=== PATIENT | female | born 1975 | race Two or more races ===

== ENCOUNTER 2020-07-26 17:35 | Inpatient (IN) | payer OTHER ==
[~2020-07-26] VITALS: Ht 160 cm; Wt 96.5 kg
--- NOTE | 2020-07-26 18:00 | NUR ---
AMBULATORY TO ED ROOM 27 W/ SLOW, STEADY GAIT. CONGESTED COUGH NOTED.
--- NOTE | 2020-07-26 18:18 | NUR ---
COVID TEST ON TUESDAY: POSITIVE. PAIN W/ COUGHING, FEVER, NAUSEA, PRODUCTIVE COUGH, DIARRHEA. DENIES ABD PAIN. PT'S DAUGHTER IN ROOM ASSISTING W/ HX. PT HAS TAKEN MULTIPLE OTC MEDS FOR SX RECENTLY. TODAY: ASPIRIN (LAST DOSE 1500)
[2020-07-26] MEDS ORDERED: METF500T17 PO (18:26)
[2020-07-26] MEDS ORDERED: LISI-167 PO (18:26)
[2020-07-26] MEDS ORDERED: LOVA20TA2 PO (18:26)
--- NOTE | 2020-07-26 18:26 | NUR ---
MED REC COMPLETED. PT REPORTS SHE HASN'T TAKEN HER MEDS THIS WEEK DUE TO FEELING ILL.
--- NOTE | 2020-07-26 18:44 | NUR ---
PREDNISONE GIVEN. LAB AT BS.
[2020-07-26] MEDS ORDERED: CEFTRIAXONE PMX 1GM/50ML 50 ML IVPB ONE (19:00)
[2020-07-26] MEDS ORDERED: DOXYCYCLINE 100MG TABLET PO ONE (19:00)
[2020-07-26] MEDS ORDERED: DEXAMETHASONE 4 MG/ML, 1ML IVPush ONE (19:00)
[2020-07-26 19:01] LABS: BASOPHILS % (AUTO) 0 % (0-1); EOSINOPHILS % (AUTO) 0 % (1-7); LYMPHOCYTES % (AUTO) 13 % (22-44); MEAN CORPUSCULAR HEMOGLOBIN 27.2 pg (27.0-34.8); MEAN CORPUSCULAR HGB CONC 33.6 g/dL (32.4-35.8); MEAN PLATELET VOLUME 7.5 fL (7.4-10.4); MONOCYTES % (AUTO) 3 % (2-9); NEUTROPHILS % (AUTO) 84 % (42-75); PLATELET COUNT 204 x10^3/uL (130-400); RED BLOOD COUNT 4.77 x10^6/uL (3.82-5.3)
[2020-07-26] MEDS ORDERED: DEXAMETHASONE 4 MG/ML, 1ML ONE (19:01)
[2020-07-26] MEDS ORDERED: CEFTRIAXONE PMX 1GM/50ML 50 ML ONE (19:02)
[2020-07-26] MEDS ORDERED: DOXYCYCLINE 100MG TABLET ONE (19:04)
[2020-07-26 19:09] LABS: ALBUMIN 2.6 g/dL (3.4-5.0); ANION GAP 7 mmol/L (5-15); CALCIUM 8.4 mg/dL (8.5-10.1); CHLORIDE 99 mmol/L (98-107); CREATININE 0.61 mg/dL (0.55-1.02)
[2020-07-26 19:16] LABS: ALANINE AMINOTRANSFERASE 25 U/L (12-78); ALKALINE PHOSPHATASE 96 U/L (45-117); BILIRUBIN,TOTAL 0.4 mg/dL (0.2-1.0); MD NO; TOTAL PROTEIN 7.2 g/dL (6.4-8.2)
[2020-07-26 19:21] LABS: BASOPHILS % (AUTO) 0 % (0-1); EOSINOPHILS % (AUTO) 0 % (1-7); LYMPHOCYTES % (AUTO) 13 % (22-44); MEAN CORPUSCULAR HEMOGLOBIN 27.1 pg (27.0-34.8); MEAN CORPUSCULAR HGB CONC 33.4 g/dL (32.4-35.8); MEAN PLATELET VOLUME 7.7 fL (7.4-10.4); MONOCYTES % (AUTO) 3 % (2-9); NEUTROPHILS % (AUTO) 84 % (42-75); PLATELET COUNT 215 x10^3/uL (130-400); RED BLOOD COUNT 4.83 x10^6/uL (3.82-5.3); RED CELL DISTRIBUTION WIDTH 13.9 % (9.6-15.2)
[2020-07-26 19:24] LABS: MD NO
--- NOTE | 2020-07-26 19:30 | NUR ---
PIV INITIATED; 20G LAC. 2ND BLD CX SET DRAWN FROM SITE.
--- NOTE | 2020-07-26 19:34 | NUR ---
VIBRAMYCIN, DECADRON GIVEN. THALIA WHARTON. IV SITE PATENT. APPLE JUICE & JACKY CRACKERS PROVIDED.
[2020-07-26 19:42] LABS: D-DIMER (DIC) 0.85 ug/mlFEU (0.00-0.52); PROTIME 10.6 Seconds (9.6-11.5)
--- NOTE | 2020-07-26 20:56 | NUR ---
AMBULATORY TO & FROM BR W/ STEADY GAIT. HOSPITAL BED TO ROOM. JUICE, WATER & JACKY CRACKERS PROVIDED.
--- NOTE | 2020-07-26 21:56 | NUR ---
PT REPORT TO VAZQUEZ HOLLAND. PT CARE TRANSFERRED.
[2020-07-26] MEDS ORDERED: DOCUSATE 100 MG CAPSULE PO PRN (22:00)
[2020-07-26] MEDS ORDERED: OXYcodone IR 5MG TABLET PO PRN (22:00)
[2020-07-26] MEDS ORDERED: PROMETHAZINE 25 MG/ML, 1ML IM PRN (22:00)
[2020-07-26] MEDS ORDERED: hydrALAzine 20 MG/ML, 1ML IVPush PRN (22:00)
[2020-07-26] MEDS ORDERED: POLYETHYLENE GLYCOL 17 GM PACKET PO PRN (22:00)
[2020-07-26] MEDS ORDERED: ACETAMINOPHEN 325 MG TABLET PO PRN (22:00)
[2020-07-26] MEDS ORDERED: ONDANSETRON 2MG/ML, 2ML IVPush PRN (22:00)
[2020-07-26] MEDS ORDERED: morphine SULFATE 10 MG/ML, 1ML IVPush PRN (22:00)
[2020-07-26] MEDS ORDERED: ENOXAPARIN 40 MG/0.4 ML SQ SCH (22:00)
[2020-07-26] MEDS ORDERED: BISACODYL 10 MG SUPP PR PRN (22:00)
[2020-07-26] MEDS ORDERED: ONDANSETRON ODT 4 MG PO PRN (22:00)
--- NOTE | 2020-07-26 22:00 | NUR ---
REPORT FROM JAY JAY SHUKLA. PT RESTING WITH NO NEEDS AT THIS TIME. CALL LIGHT IN REACH. VSS
[2020-07-26] MEDS ORDERED: ASCORBIC ACID 500 MG TABLET ONE (22:27)
[2020-07-26] MEDS ORDERED: ENOXAPARIN 40 MG/0.4 ML ONE (22:27)
[2020-07-26] MEDS ORDERED: ZINC SULFATE 220 MG CAPSULE ONE (22:27)
[2020-07-26] MEDS ORDERED: ALBUTEROL HFA 90 MCG/SPRAY INH PRN ×2 (22:30→23:30)
[2020-07-26] MEDS ORDERED: REMDESIVIR 200 MG in SODIUM CHLORIDE 0.9% 250 ML IVPB ONE (22:30)
[2020-07-26] MEDS: ASCORBIC ACID 500 MG TABLET PO SCH (22:33)
[2020-07-26] MEDS: ZINC SULFATE 220 MG CAPSULE PO SCH (22:34)
--- NOTE | 2020-07-26 22:44 | NUR ---
PT MEDICATED AND PLACED ON PRINTING GRAY CLOTH TENDER. VSS. PT HAS NO OTHER NEEDS. CALL LIGHT IN REACH.
--- NOTE | 2020-07-26 23:05 | NUR ---
SPOKE TO PT ABOUT REMDESIVIR. GAVE PT EDUCATION HANDOUT AND ANSWERED QUESTIONS. PT VWERBALIZED UNDERSTANDING AND MEDICATION STARTED. WILL CONTINUE TO MONITOR PT. CALL LIGHT IN REACH
--- NOTE | 2020-07-27 00:49 | NUR ---
Report received from VAZQUEZ Valdez. This RN to assume care. Patient sleeping at this time.
--- NOTE | 2020-07-27 01:30 | NUR ---
Patient sleeping in hospital bed. No needs at this time. Respirations even and unlabored.
--- NOTE | 2020-07-27 02:23 | NUR ---
Patient sleeping in hospital bed. No needs at this time. Respirations even and unlabored.
--- NOTE | 2020-07-27 03:32 | NUR ---
Patient sleeping in hospital bed. No needs at this time. Respirations even and unlabored.
--- NOTE | 2020-07-27 04:24 | NUR ---
Report given to VAZQUEZ Reynoso. Patient care transferred.
--- NOTE | 2020-07-27 04:34 | NUR ---
REPORT OF PT FROM VAZQUEZ SQUIRES AND ASSUMING CARE OF PT AT THIS TIME.
--- NOTE | 2020-07-27 05:06 | NUR ---
pt resting in [facility] at this time; bryan. vss and updated in emr.
[2020-07-27 05:16] LABS: BASOPHILS % (AUTO) 0 % (0-1); EOSINOPHILS % (AUTO) 0 % (1-7); LYMPHOCYTES % (AUTO) 21 % (22-44); MEAN CORPUSCULAR HGB CONC 33.1 g/dL (32.4-35.8); MEAN PLATELET VOLUME 7.5 fL (7.4-10.4); MONOCYTES % (AUTO) 3 % (2-9); NEUTROPHILS % (AUTO) 77 % (42-75); PLATELET COUNT 215 x10^3/uL (130-400); RED BLOOD COUNT 4.87 x10^6/uL (3.82-5.3); RED CELL DISTRIBUTION WIDTH 14.1 % (9.6-15.2)
[2020-07-27 05:23] LABS: INTERNATIONAL NORMALIZED RATIO 0.97 (0.93-1.1); PROTHROMBIN TIME 10.3 Seconds (9.6-11.5)
[2020-07-27 05:30] LABS: ALBUMIN 2.5 g/dL (3.4-5.0); ANION GAP 7 mmol/L (5-15); CALCIUM 8.8 mg/dL (8.5-10.1); CHLORIDE 104 mmol/L (98-107)
[2020-07-27 05:40] LABS: ALANINE AMINOTRANSFERASE 24 U/L (12-78); ALKALINE PHOSPHATASE 99 U/L (45-117); BILIRUBIN,TOTAL 0.2 mg/dL (0.2-1.0); CHOL/HDL RATIO 2.1; CHOLESTEROL, TOTAL 126 mg/dL (140-239); HDL CHOL % 48 % (28-40); HDL CHOLESTEROL (DIRECT) 61 mg/dL (40-60); LDL CHOLESTEROL,CALCULATED 49 mg/dL (54-169); LDL/HDL RATIO 0.8 (0.5-3.0); TOTAL PROTEIN 7.1 g/dL (6.4-8.2); TRIGLYCERIDES 80 mg/dL (50-200); VLDL CHOLESTEROL 16 mg/dL (0-25)
[2020-07-27 06:05] LABS: MD SCAN
--- NOTE | 2020-07-27 07:11 | NUR ---
REPORT OF PT TO VAZQUEZ ROSARIO. ALL QUESTIONS ANSWERED.
--- NOTE | 2020-07-27 07:12 | NUR ---
REPORT RECEIVED FROM VAZQUEZ PISANO FOR TRANSFER OF PATIENT CARE.
[2020-07-27] MEDS ORDERED: ACETAMINOPHEN 325 MG TABLET PO PRN (07:30)
[2020-07-27] MEDS ORDERED: SODIUM CHLORIDE 0.9% 1,000 ML IV SCH (07:30)
[2020-07-27] MEDS ORDERED: LISINOPRIL 20 MG TABLET ONE (07:42)
[2020-07-27] MEDS ORDERED: DEXAMETHASONE 4 MG/ML, 1ML ONE (07:43)
[2020-07-27] MEDS ORDERED: CEFTRIAXONE PMX 2GM/50ML 50 ML ONE (07:43)
[2020-07-27] MEDS ORDERED: HEPARIN 5,000 UNITS/ML, 1ML ONE ×2 (07:43→17:18)
[2020-07-27] MEDS ORDERED: ZINC SULFATE 220 MG CAPSULE ONE (07:43)
[2020-07-27] MEDS ORDERED: ASCORBIC ACID 500 MG TABLET ONE ×2 (07:43→17:18)
[2020-07-27] MEDS: ZINC SULFATE 220 MG CAPSULE PO SCH (08:17)
[2020-07-27] MEDS: ASCORBIC ACID 500 MG TABLET PO SCH ×2 (08:17→17:27)
[2020-07-27] MEDS: HEPARIN 5,000 UNITS/ML, 1ML SQ SCH ×2 (08:19→17:27)
[2020-07-27] MEDS: CEFTRIAXONE PMX 2GM/50ML 50 ML IVPB SCH (08:19)
[2020-07-27] MEDS: INSULIN LISPRO 100 UNITS/ML, PEN SQ-INSULIN SCH ×3 (08:23→17:26)
--- NOTE | 2020-07-27 08:29 | NUR ---
cardiac rhythm strip printed and placed on chart
--- NOTE | 2020-07-27 08:41 | NUR ---
PATIENT MEDICATED PER eMAR, BREAKFAST TRAY PROVIDED, NO SIGNS OF ACUTE DISTRESS, CONNECTED TO WOOD REPATCHER, CALL LIGHT WITHIN REACH.
[2020-07-27] MEDS ORDERED: DEXAMETHASONE 4 MG/ML, 1ML IVPush SCH (09:00)
[2020-07-27] MEDS ORDERED: AZITHROMYCIN 500 MG in SODIUM CHLORIDE 0.9% 250 ML IV SCH (09:00)
[2020-07-27] MEDS ORDERED: LISINOPRIL 10 MG TABLET PO SCH (09:00)
--- NOTE | 2020-07-27 09:15 | NUR ---
REC BS REPORT PT RESTING AO4 PROVIDED MORE FLUIDS VSS
[2020-07-27] MEDS: SODIUM CHLORIDE 0.9% 1,000 ML IV SCH (09:55)
--- NOTE | 2020-07-27 10:53 | NUR ---
RECEIVED REPORT FROM ANNIE SHUKLA. ASSUMING CARE AT THIS TIME. PT RESTING COMFORTABLY ON HOSPITAL BED. NADN. PT CONNECTED TO MONITORING.
--- NOTE | 2020-07-27 12:39 | NUR ---
cardiac rhythm strip printed and placed on chart
--- NOTE | 2020-07-27 14:02 | NUR ---
PT RESTING COMFORTABLY ON HOSPITAL BED.
[2020-07-27] MEDS ORDERED: metFORMIN 500 MG TABLET ONE (17:17)
[2020-07-27] MEDS: metFORMIN 500 MG TABLET PO SCH (17:26)
--- NOTE | 2020-07-27 17:28 | NUR ---
cardiac rhythm strip printed and placed on chart.
[2020-07-27] MEDS ORDERED: CEFTRIAXONE PMX 1GM/50ML 50 ML IV SCH (19:00)
[2020-07-27] MEDS: LOVASTATIN 20 MG TABLET PO SCH (21:16)
--- NOTE | 2020-07-27 22:58 | NUR ---
preceptor VAZQUEZ: anju gave report to vazquez ching
--- NOTE | 2020-07-27 22:58 | NUR ---
preceptor RN: report recieved from VAZQUEZ Ivy. we will monitor and care for pt until she is transfered to floor. awaiting room to be cleaned.
--- NOTE | 2020-07-27 23:05 | NUR ---
REPORT GIVEN TO ABDI SHUKLA FOR ROOM 487.
[2020-07-27 23:40] VITALS: BP 96/65
[2020-07-28] MEDS: HEPARIN 5,000 UNITS/ML, 1ML SQ SCH ×3 (00:19→18:16)
[2020-07-28] MEDS: REMDESIVIR 100 MG in SODIUM CHLORIDE 0.9% 250 ML IVPB SCH (00:41)
[2020-07-28 02:23] VITALS: BP 106/62
[2020-07-28] MEDS: SODIUM CHLORIDE 0.9% 1,000 ML IV SCH ×2 (03:33→20:48)
[2020-07-28 05:23] LABS: BASOPHILS % (AUTO) 0 % (0-1); EOSINOPHILS % (AUTO) 0 % (1-7); LYMPHOCYTES % (AUTO) 29 % (22-44); MEAN CORPUSCULAR HEMOGLOBIN 26.8 pg (27.0-34.8); MEAN PLATELET VOLUME 7.6 fL (7.4-10.4); MONOCYTES % (AUTO) 7 % (2-9); NEUTROPHILS % (AUTO) 64 % (42-75); PLATELET COUNT 270 x10^3/uL (130-400); RED BLOOD COUNT 4.53 x10^6/uL (3.82-5.3); RED CELL DISTRIBUTION WIDTH 13.8 % (9.6-15.2)
[2020-07-28 05:27] LABS: MD NO
[2020-07-28 05:34] LABS: ALBUMIN 2.2 g/dL (3.4-5.0); ANION GAP 6 mmol/L (5-15); CALCIUM 8.2 mg/dL (8.5-10.1); CHLORIDE 106 mmol/L (98-107)
[2020-07-28 05:43] LABS: ALANINE AMINOTRANSFERASE 26 U/L (12-78); ALKALINE PHOSPHATASE 78 U/L (45-117); BILIRUBIN,TOTAL 0.2 mg/dL (0.2-1.0); CREATININE 0.54 mg/dL (0.55-1.02); TOTAL PROTEIN 5.9 g/dL (6.4-8.2)
[2020-07-28] MEDS: INSULIN LISPRO 100 UNITS/ML, PEN SQ-INSULIN SCH ×4 (07:00→20:46)
[2020-07-28 07:37] VITALS: BP 100/65
[2020-07-28] MEDS: ZINC SULFATE 220 MG CAPSULE PO SCH (08:23)
[2020-07-28] MEDS: LISINOPRIL 20 MG TABLET PO SCH (08:23)
[2020-07-28] MEDS: ASCORBIC ACID 500 MG TABLET PO SCH ×2 (08:23→18:16)
[2020-07-28] MEDS: metFORMIN 500 MG TABLET PO SCH ×2 (08:23→18:16)
[2020-07-28] MEDS: DEXAMETHASONE 4 MG/ML, 1ML IVPush SCH (09:00)
[2020-07-28] MEDS: CEFTRIAXONE PMX 2GM/50ML 50 ML IVPB SCH (11:15)
[2020-07-28 12:36] VITALS: BP 109/68
[2020-07-28 18:53] VITALS: BP 111/72
[2020-07-28] MEDS: LOVASTATIN 20 MG TABLET PO SCH (20:47)
[2020-07-29] MEDS: HEPARIN 5,000 UNITS/ML, 1ML SQ SCH ×3 (00:04→17:12)
[2020-07-29] MEDS: REMDESIVIR 100 MG in SODIUM CHLORIDE 0.9% 250 ML IVPB SCH (00:04)
[2020-07-29 01:05] VITALS: BP 116/72
[2020-07-29] MEDS: INSULIN LISPRO 100 UNITS/ML, PEN SQ-INSULIN SCH ×4 (07:00→20:48)
[2020-07-29 07:15] LABS: ALBUMIN 2.2 g/dL (3.4-5.0); ANION GAP 4 mmol/L (5-15); CALCIUM 8.4 mg/dL (8.5-10.1); CHLORIDE 110 mmol/L (98-107)
[2020-07-29 07:19] LABS: CREATININE 0.47 mg/dL (0.55-1.02)
[2020-07-29 07:20] LABS: ALANINE AMINOTRANSFERASE 24 U/L (12-78); ALKALINE PHOSPHATASE 68 U/L (45-117); BILIRUBIN,TOTAL 0.2 mg/dL (0.2-1.0); TOTAL PROTEIN 5.7 g/dL (6.4-8.2)
[2020-07-29 07:34] VITALS: BP 113/73
[2020-07-29 07:47] LABS: INTERNATIONAL NORMALIZED RATIO 1.01 (0.93-1.1); PROTHROMBIN TIME 10.7 Seconds (9.6-11.5)
[2020-07-29] MEDS: ASCORBIC ACID 500 MG TABLET PO SCH ×2 (08:04→17:12)
[2020-07-29] MEDS: DEXAMETHASONE 4 MG/ML, 1ML IVPush SCH (08:04)
[2020-07-29] MEDS: LISINOPRIL 20 MG TABLET PO SCH (08:04)
[2020-07-29] MEDS: metFORMIN 500 MG TABLET PO SCH ×2 (08:05→17:12)
[2020-07-29] MEDS: ZINC SULFATE 220 MG CAPSULE PO SCH (08:05)
[2020-07-29] MEDS: LACTOBACILLUS CHEW TABLET PO SCH ×3 (11:56→20:55)
[2020-07-29] MEDS: CEFTRIAXONE PMX 2GM/50ML 50 ML IVPB SCH (11:57)
[2020-07-29 12:03] VITALS: BP 117/69
[2020-07-29] MEDS: SODIUM CHLORIDE 0.9% 1,000 ML IV SCH (16:00)
[2020-07-29] MEDS: BENZONATATE 100 MG CAPSULE PO SCH ×2 (17:13→20:55)
[2020-07-29 19:57] VITALS: BP 142/72
[2020-07-29] MEDS: LOVASTATIN 20 MG TABLET PO SCH (20:55)
[2020-07-30] MEDS: REMDESIVIR 100 MG in SODIUM CHLORIDE 0.9% 250 ML IVPB SCH (00:28)
[2020-07-30] MEDS: HEPARIN 5,000 UNITS/ML, 1ML SQ SCH ×2 (00:29→08:50)
[2020-07-30 01:11] VITALS: BP 119/78
[2020-07-30 06:04] LABS: CHLORIDE 108 mmol/L (98-107)
[2020-07-30 06:20] LABS: ALANINE AMINOTRANSFERASE 24 U/L (12-78); ALBUMIN 2.1 g/dL (3.4-5.0); ALKALINE PHOSPHATASE 74 U/L (45-117); ANION GAP 5 mmol/L (5-15); BILIRUBIN,TOTAL 0.2 mg/dL (0.2-1.0); CALCIUM 7.8 mg/dL (8.5-10.1); CREATININE 0.51 mg/dL (0.55-1.02); TOTAL PROTEIN 5.5 g/dL (6.4-8.2)
[2020-07-30] MEDS: INSULIN LISPRO 100 UNITS/ML, PEN SQ-INSULIN SCH ×2 (07:00→11:00)
[2020-07-30 07:33] VITALS: BP 124/81
[2020-07-30] MEDS: metFORMIN 500 MG TABLET PO SCH (08:36)
[2020-07-30] MEDS: ASCORBIC ACID 500 MG TABLET PO SCH (08:36)
[2020-07-30] MEDS: LACTOBACILLUS CHEW TABLET PO SCH (08:36)
[2020-07-30] MEDS: BENZONATATE 100 MG CAPSULE PO SCH (08:37)
[2020-07-30] MEDS: LISINOPRIL 20 MG TABLET PO SCH (08:37)
[2020-07-30] MEDS: ZINC SULFATE 220 MG CAPSULE PO SCH (08:37)
[2020-07-30] MEDS ORDERED: PRED5TAB PO (10:27)
[2020-07-30] MEDS ORDERED: ACID1TAB7 PO (10:27)
[2020-07-30] MEDS ORDERED: INSU100I11 SQ-INSULIN (10:27)
[2020-07-30] MEDS ORDERED: ASCO500T9 PO (10:27)
[2020-07-30] MEDS ORDERED: DOXY100C2 PO (10:27)
[2020-07-30] MEDS ORDERED: AMOX-291 PO (10:27)
[2020-07-30] MEDS ORDERED: ALBU18HF INH (10:27)
[2020-07-30] MEDS ORDERED: BENZ-17 PO (10:27)
[2020-07-30] MEDS: CEFTRIAXONE PMX 2GM/50ML 50 ML IVPB SCH (11:00)
[2020-07-30] MEDS: SODIUM CHLORIDE 0.9% 1,000 ML IV SCH (12:00)
[2020-07-30 13:25] LABS: CLOSTRIDIUM DIFFICILE ANTIGEN NEGATIVE; CLOSTRIDIUM DIFFICILE TOXIN NEGATIVE (Negative)
== END 2020-07-30 14:30 | disposition home or self-care (01) | DRG 871 ==
LOC: ED 19:41 → EDIP 20:24 → 4EST 07-27 23:33
PROVIDERS: ADMIT Internal Medicine; ATTEND Internal Medicine
DX: A41.89 Other specified sepsis (principal); J12.89 Other viral pneumonia; J96.01 Acute respiratory failure with hypoxia; U07.1 COVID-19; E87.1 Hypo-osmolality and hyponatremia; E11.65 Type 2 diabetes mellitus with hyperglycemia; I10 Essential (primary) hypertension; J45.909 Unspecified asthma, uncomplicated; E66.9 Obesity, unspecified; Z68.37 Body mass index [BMI] 37.0-37.9, adult; E78.5 Hyperlipidemia, unspecified; E83.51 Hypocalcemia; G47.00 Insomnia, unspecified; Z79.84 Long term (current) use of oral hypoglycemic drugs
CPT/HCPCS: 36415; 36600; 71045; 80053; 80061; 82330; 82728; 82803; 82962; 83036; 83605; 83615; 83735; 84145; 84443; 85025; 85049; 85379; 85384; 85610; 85730; 86140; 87040; 87324; 93005; G0378; J0696; J1100; J1644; J1650; J1815; J7030; J7050; J7512